=== PATIENT | female | born 1965 | race Caucasian/White ===

== ENCOUNTER 2019-10-02 12:44 | Emergency (ER) | payer OTHER ==
[~2019-10-02] VITALS: Ht 160 cm; Wt 124.7 kg
[2019-10-02 12:50] VITALS: BP 138/69
[2019-10-02] MEDS ORDERED: KETOROLAC 60 MG/2 ML VIAL IM ONE (13:05)
[2019-10-02 13:30] VITALS: BP 128/71
== END 2019-10-02 13:31 | disposition home or self-care (01) ==
LOC: MED 12:44
DX: M54.5 Low back pain (principal); M79.604 Pain in right leg; Z90.710 Acquired absence of both cervix and uterus
CPT/HCPCS: 96372; 99283; J1885